=== PATIENT | male | born 1935 | race Caucasian/White ===

== ENCOUNTER 2019-03-02 07:44 | Inpatient (IN) ==
[2019-03-02] MEDS ORDERED: Ondansetron 4 MG/2 ML VIAL IVP ONE (07:58)
[2019-03-02] MEDS ORDERED: Isovue-370 500 ML BOTTLE IVP ONE ×2 (08:17→08:23)
[2019-03-02] MEDS ORDERED: 0.9 % Sodium Chloride 500 ML IVC ONE (08:20)
[2019-03-02 08:35] LABS: Basophils % 0.1 %; Hematocrit 30.1 % (37.5-50.1); Hemoglobin 9.9 g/dL (12.9-16.9); Immature Granulocytes % 0.9 % (0-4); Lymphocytes # 0.6 K/mcL (0.6-4.6); Lymphocytes % 4.6 %; Mean Corpuscular HGB Conc 32.9 g/dL (31.6-35.5); Mean Corpuscular Hemoglobin 32.2 pg (28.0-33.3); Mean Platelet Volume 11.5 fL (9.4-12.4); Monocytes # 0.9 K/mcL (0.0-1.3); Monocytes % 7.5 %; Neutrophils # 10.4 K/mcL (1.6-8.9); Platelet Count 188 K/mcL (140-400); Red Blood Count 3.07 M/mcL (4.19-5.50); Red Cell Distribution Width 14.8 % (11.5-14.5); Segmented Neutrophils % 86.9 %; White Blood Count 11.9 K/mcL (4.3-11.1)
[2019-03-02 08:42] LABS: INR 1.3; Prothrombin Time 14.7 Seconds (9.4-12.1)
[2019-03-02 08:58] LABS: Albumin 4.3 g/dL (3.5-5.7); Albumin/Globulin Ratio 1.5 (1.1-2.2); Bilirubin,Total 0.9 mg/dL (0.3-1.0); Calcium 10.7 mg/dL (8.6-10.3); Globulin 2.8 g/dL (2.4-3.5); Potassium 3.7 mEq/L (3.5-5.1); Total Protein 7.1 g/dL (6.4-8.9)
[2019-03-02 09:51] LABS: Troponin I 0.04 ng/mL (< 0.04)
[2019-03-02 10:09] LABS: Thyroid Stimulating Hormone 2.216 mcIU/mL (0.340-5.600)
--- NOTE | 2019-03-02 10:12 | Emergency Department Note ---
Disposition Clinical Impression: Weakness, ANA (acute kidney injury) Anemia Qualifiers: Anemia type: unspecified type Qualified Code(s): D64.9 - Anemia, unspecified Laceration of head Qualifiers: Encounter type: initial encounter Location of open wound of head: scalp Foreign body presence: without foreign body Qualified Code(s): S01.01XA - Laceration without foreign body of scalp, initial encounter Disposition: Admitted As Inpatient Condition: Good Time of Disposition: 18:27 General Adult HPI - General Chief complaint: ED Fall Stated complaint: weakness Time Seen by Provider: 03/02/19 07:45 Source: patient, EMS Mode of arrival: ambulatory Limitations: no limitations Nursing Notes Reviewed: Yes Vital Signs Reviewed: Yes - History of Present Illness HPI Narrative: Patient is a 83-year-old male with a past medical history of atrial fibrillation, CVA, myelodysplastic syndrome with anemia, and colon cancer with colostomy presents to the ED for evaluation of weakness and falls. Patient states that over the past week he has had increase in frequency of the amount of falls he has had falls in the past but increase in frequency more recently. This morning around 3:00 AM he got up from bed felt very weak and fell onto his back. He denies LOC. States it took a more than usual to get up. He is contacted by his sibling she came over and called squad. Patient states that he is dispensed feeling generally weak and having nausea and vomiting. He also admits to urinary incontinence. States that he is had CAT scans with his oncologist for follow-up of his cancer and told he has a large prostate and may eventually need a catheterization. She denies any focal neurological deficits. States he has back pain and his sibling at bedside states that he typically has back pain. Pain Scale: 6 - Related Data Home Medications Medication Instructions Recorded Confirmed Rivaroxaban [Xarelto] 15 mg PO DAILY 10/05/18 03/07/19 Levothyroxine Sodium 88 mcg PO QAM 03/02/19 03/07/19 Previous Rx's Medication Instructions Recorded HYDROcodone/Acet 5/325 mg [Lampe 1 tab PO Q8HR PRN 5 Days #15 tablet 03/06/19 5-325 mg] DULoxetine [Cymbalta] 90 mg PO DAILY #90 capsule. 03/13/19 Gabapentin [Neurontin] 800 mg PO TID 30 Days #180 capsule 03/13/19 predniSONE [PredniSONE] 10 mg PO BIDWM #14 tablet 03/13/19 Allergies Allergy/AdvReac Type Severity Reaction Status Date / Time No Known Allergies Allergy Verified 12/19/18 12:04 All systems ED: reviewed and negative except as stated. Review of Systems: As Per HPI Cardiovascular: Denies: chest pain, palpitations, dyspnea on exertion Respiratory: Denies: cough, dyspnea, wheezes Gastrointestinal: Reports: nausea, vomiting. Denies: abdominal pain, diarrhea, constipation, hematemesis, melena, hematochezia Genitourinary: Denies: urgency, dysuria Musculoskeletal: Denies: back pain, neck pain Integumentary: Denies: rash Past Medical History - Past Medical History Medical history: Reports: cancer, renal disease, thyroid disease Surgical history: Reports: cholecystectomy, colectomy Psychiatric history: Reports: no psych history - Social History Smoking Status: Never smoker Smokeless Tobacco Status: No Alcohol use: Reports: none Drug use: Reports: none Physical Exam - General Limitations: no limitations General appearance: alert - Expanded Head Exam Head exam physicial: Present: laceration (occiput laceration that is 2.5cm and linear.), abrasion (superficial to the right posterior shoulder left abdomen. ). Absent: contusion, hematoma, raccoon eyes, Moran's sign, tenderness of temporal artery, CSF rhinorrhea, CSF otorrhea - Eye Eye exam: Present: normal appearance, PERRL, EOMI. Absent: scleral icterus, periorbital swelling, periorbital tenderness - ENT ENT exam: normal exam, normal oropharynx, mucous membranes moist - Neck Neck exam: Present: normal inspection, full ROM, trachea midline. Absent: tenderness - Chest Chest inspection: Present: normal inspection, symmetric chest wall rise. Absent: tenderness, rash - Respiratory Respiratory exam: Present: normal lung sounds bilaterally. Absent: respiratory distress, wheezes - Cardiovascular Cardiovascular exam: Present: normal rhythm, tachycardia, irregular rhythm, normal heart sounds - Abdominal Exam Abdominal exam: Present: soft, Non-Tender, distention (suprapubic region), normal bowel sounds, other (colostomy bag present). Absent: tenderness, guarding, rebound, rigidity - Male exam: Present: normal inspection, normal testicular lie - Extremities Exam Extremities exam: Present: full ROM, normal capillary refill. Absent: tenderness, pedal edema, calf tenderness - Expanded Upper Extremity Exam Forearm/Wrist exam: Present: other (5cm linear laceration to the dorsal aspect of the left hand. tendon exposed, but no tendon injury. ROM and sensation intact. ) - Expanded Lower Extremity Exam Upper leg exam: Present: abrasion (right posterior shoulder) - Neurological Exam Neurological exam: Present: alert, oriented X3 - Psychiatric Psychiatric exam: Present: normal affect, normal mood - Skin Skin exam: Present: warm, dry, normal color Course Course Narrative: Patient presented to the ED for evaluation of weakness causing falls with no reports of LOC. Patient did have some signs of injury from the fall with laceration to his scalp as well as laceration his left upper extremity and some superficial abrasions. The patient is also mentioning nausea and vomiting as well as urinary incontinence and was reported to have a history of enlarged prostate which she was told may give him problems in the future. On bedside FAST exam he is noted to have no free fluid however he did have a markedly distended bladder with at least 1.2 L of urine present and patient was unable to produce any urine when asked. Patient at workup for his fall with head scanning as well as spine scanning and scan of the chest abdomen and pelvis. He does not appear to have any new traumatic injuries primarily old subacute injuries as well as chronic changing of his spine. Again bladder distention was noted. Patient's lab work was remarkable for what appears to be a chronic anemia as well as an ANA. A Cortes catheter was placed and there was relief of 1.2 L of urine patient improvement of his symptoms. His initial heart rate was and out of A. fib and tachycardic in the 130s to 140s and is improved with fluid resuscitation to 105-110. 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 I suspect that he will improve with resuscitation. Regardless will be admitted for further evaluation and workup. I discussed this with the family and they agree. Vital Signs Temperature 99.1 F 03/02/19 07:47 Pulse Rate 125 03/02/19 07:47 Respiratory Rate 18 03/02/19 07:47 Blood Pressure 115/74 03/02/19 07:47 O2 Sat by Pulse Oximetry 95 03/02/19 07:47 Temperature 98.5 F 03/06/19 11:09 Pulse Rate 68 03/06/19 11:09 Respiratory Rate 15 03/06/19 11:09 Blood Pressure 127/88 03/06/19 11:09 O2 Sat by Pulse Oximetry 98 03/06/19 11:09 Oxygen Delivery Oxygen Delivery Room Air Procedures - Laceration Laceration 1 Site: scalp Side (If applicable): right Description: linear Depth: simple, single layer Local Anesthetic: lidocaine 1%, with epi Amount of Anesthesia Used (mL): 3 Pre-repair: wound explored, irrigated extensively, deep structures intact Skin layer closed with: nylon Size: 4-0 Number of sutures/ginger: 4 Technique: simple, interrupted Laceration 2 Site: upper extremity, hand Side (If applicable): left Size (cm): 5 Description: linear Depth: simple, single layer Local Anesthetic: lidocaine 1%, with epi Amount of Anesthesia Used (mL): 7 Pre-repair: wound explored, irrigated extensively, deep structures intact Skin layer closed with: nylon Size: 4-0 Number of sutures/ginger: 9 Technique: simple, interrupted Medical Decision Making - Medical Records Medical records reviewed: Yes I reviewed the patient's medical records. - Lab Data Lab results reviewed: Yes I reviewed the patient's lab results. Result diagrams: 03/06/19 05:37 03/06/19 05:37 Lab Results 03/02/19 03/02/19 03/02/19 Range/Units 08:08 08:08 08:08 WBC 11.9 H (4.3-11.1) K/mcL RBC 3.07 L (4.19-5.50) M/mcL Hgb 9.9 L (12.9-16.9) g/dL Hct 30.1 L (37.5-50.1) % MCV 98.0 (83.0-100.0) fL MCH 32.2 (28.0-33.3) pg MCHC 32.9 (31.6-35.5) g/dL RDW 14.8 H (11.5-14.5) % Plt Count 188 (140-400) K/mcL MPV 11.5 (9.4-12.4) fL Immature Gran % 0.9 (0-4) % Seg Neutrophils % 86.9 % Lymphocytes % 4.6 % Monocytes % 7.5 % Eosinophils % 0.0 % Basophils % 0.1 % Neutrophils # 10.4 H (1.6-8.9) K/mcL Lymphocytes # 0.6 (0.6-4.6) K/mcL Monocytes # 0.9 (0.0-1.3) K/mcL Eosinophils # 0.0 (0.0-0.6) K/mcL Basophils # 0.0 (0.0-0.2) K/mcL PT 14.7 H (9.4-12.1) Seconds INR 1.3 Sodium 137 (136-145) mEq/L Potassium 3.7 (3.5-5.1) mEq/L Chloride 96 L (98-107) mEq/L Carbon Dioxide 27 (23-29) mEq/L BUN 49 H (8-23) mg/dL Creatinine 1.84 H (0.70-1.30) mg/dL Est GFR ( Amer) 43 L (> 60) Est GFR (Non-Af Amer) 35 L (> 60) BUN/Creatinine Ratio 27 H (6-26) Glucose 138 H (70-105) mg/dL POC Glucose (70-99) mg/dL Calculated Osmolality 299 (280-300) Lactic Acid (0.5-2.2) mmol/L Calcium 10.7 H (8.6-10.3) mg/dL Iron (65-175) mcg/dL % Saturation (20-55) % Transferrin (203-362) mg/dL Total Bilirubin 0.9 (0.3-1.0) mg/dL AST 22 (13-39) Units/L ALT 13 (7-52) Units/L Alkaline Phosphatase 85 (34-104) Units/L Creatine Kinase 116 (30-223) Units/L Troponin I 0.04 H* (< 0.04) ng/mL Serum Total Protein 7.1 (6.4-8.9) g/dL Albumin 4.3 (3.5-5.7) g/dL Globulin 2.8 (2.4-3.5) g/dL Albumin/Globulin Ratio 1.5 (1.1-2.2) Procalcitonin (0.00-0.15) ng/mL TSH 2.216 (0.340-5.600) mcIU/mL Urine Color (Yellow) Urine Clarity (Clear) Urine pH (5.0-8.0) pH Units Ur Specific Snyder (1.010-1.025) Urine Protein (Neg-Trace) mg/dL Urine Glucose (UA) (Normal) mg/dL Urine Ketones (Negative) mg/dL Urine Blood (Negative) Urine Nitrite (Negative) Urine Bilirubin (Negative) Urine Urobilinogen (Normal) mg/dL Ur Leukocyte Esterase (Negative) Ur Culture Indicated? (NO) Blood Type Antibody Screen 03/02/19 03/02/19 03/02/19 Range/Units 08:08 08:17 08:17 WBC (4.3-11.1) K/mcL RBC (4.19-5.50) M/mcL Hgb (12.9-16.9) g/dL Hct (37.5-50.1) % MCV (83.0-100.0) fL MCH (28.0-33.3) pg MCHC (31.6-35.5) g/dL RDW (11.5-14.5) % Plt Count (140-400) K/mcL MPV (9.4-12.4) fL Immature Gran % (0-4) % Seg Neutrophils % % Lymphocytes % % Monocytes % % Eosinophils % % Basophils % % Neutrophils # (1.6-8.9) K/mcL Lymphocytes # (0.6-4.6) K/mcL Monocytes # (0.0-1.3) K/mcL Eosinophils # (0.0-0.6) K/mcL Basophils # (0.0-0.2) K/mcL PT (9.4-12.1) Seconds INR Sodium (136-145) mEq/L Potassium (3.5-5.1) mEq/L Chloride (98-107) mEq/L Carbon Dioxide (23-29) mEq/L BUN (8-23) mg/dL Creatinine (0.70-1.30) mg/dL Est GFR ( Amer) (> 60) Est GFR (Non-Af Amer) (> 60) BUN/Creatinine Ratio (6-26) Glucose (70-105) mg/dL POC Glucose (70-99) mg/dL Calculated Osmolality (280-300) Lactic Acid 1.7 (0.5-2.2) mmol/L Calcium (8.6-10.3) mg/dL Iron (65-175) mcg/dL % Saturation (20-55) % Transferrin (203-362) mg/dL Total Bilirubin (0.3-1.0) mg/dL AST (13-39) Units/L ALT (7-52) Units/L Alkaline Phosphatase (34-104) Units/L Creatine Kinase (30-223) Units/L Troponin I (< 0.04) ng/mL Serum Total Protein (6.4-8.9) g/dL Albumin (3.5-5.7) g/dL Globulin (2.4-3.5) g/dL Albumin/Globulin Ratio (1.1-2.2) Procalcitonin 0.26 H (0.00-0.15) ng/mL TSH (0.340-5.600) mcIU/mL Urine Color (Yellow) Urine Clarity (Clear) Urine pH (5.0-8.0) pH Units Ur Specific Snyder (1.010-1.025) Urine Protein (Neg-Trace) mg/dL Urine Glucose (UA) (Normal) mg/dL Urine Ketones (Negative) mg/dL Urine Blood (Negative) Urine Nitrite (Negative) Urine Bilirubin (Negative) Urine Urobilinogen (Normal) mg/dL Ur Leukocyte Esterase (Negative) Ur Culture Indicated? (NO) Blood Type AB NEGATIVE Antibody Screen NEGATIVE 03/02/19 03/02/19 03/02/19 Range/Units 08:26 10:00 16:42 WBC (4.3-11.1) K/mcL RBC (4.19-5.50) M/mcL Hgb (12.9-16.9) g/dL Hct (37.5-50.1) % MCV (83.0-100.0) fL MCH (28.0-33.3) pg MCHC (31.6-35.5) g/dL RDW (11.5-14.5) % Plt Count (140-400) K/mcL MPV (9.4-12.4) fL Immature Gran % (0-4) % Seg Neutrophils % % Lymphocytes % % Monocytes % % Eosinophils % % Basophils % % Neutrophils # (1.6-8.9) K/mcL Lymphocytes # (0.6-4.6) K/mcL Monocytes # (0.0-1.3) K/mcL Eosinophils # (0.0-0.6) K/mcL Basophils # (0.0-0.2) K/mcL PT (9.4-12.1) Seconds INR Sodium (136-145) mEq/L Potassium (3.5-5.1) mEq/L Chloride (98-107) mEq/L Carbon Dioxide (23-29) mEq/L BUN (8-23) mg/dL Creatinine (0.70-1.30) mg/dL Est GFR ( Amer) (> 60) Est GFR (Non-Af Amer) (> 60) BUN/Creatinine Ratio (6-26) Glucose (70-105) mg/dL POC Glucose 129 H (70-99) mg/dL Calculated Osmolality (280-300) Lactic Acid (0.5-2.2) mmol/L Calcium (8.6-10.3) mg/dL Iron (65-175) mcg/dL % Saturation (20-55) % Transferrin (203-362) mg/dL Total Bilirubin (0.3-1.0) mg/dL AST (13-39) Units/L ALT (7-52) Units/L Alkaline Phosphatase (34-104) Units/L Creatine Kinase (30-223) Units/L Troponin I 0.05 H* (< 0.04) ng/mL Serum Total Protein (6.4-8.9) g/dL Albumin (3.5-5.7) g/dL Globulin (2.4-3.5) g/dL Albumin/Globulin Ratio (1.1-2.2) Procalcitonin (0.00-0.15) ng/mL TSH (0.340-5.600) mcIU/mL Urine Color Yellow (Yellow) Urine Clarity Clear (Clear) Urine pH 6.0 (5.0-8.0) pH Units Ur Specific Snyder 1.016 (1.010-1.025) Urine Protein Negative (Neg-Trace) mg/dL Urine Glucose (UA) Normal (Normal) mg/dL Urine Ketones Negative (Negative) mg/dL Urine Blood Negative (Negative) Urine Nitrite Negative (Negative) Urine Bilirubin Negative (Negative) Urine Urobilinogen Normal (Normal) mg/dL Ur Leukocyte Esterase Negative (Negative) Ur Culture Indicated? NO (NO) Blood Type Antibody Screen 03/03/19 03/03/19 Range/Units 02:12 02:12 WBC 8.1 (4.3-11.1) K/mcL RBC 2.57 L (4.19-5.50) M/mcL Hgb 8.4 L D (12.9-16.9) g/dL Hct 25.5 L (37.5-50.1) % MCV 99.2 (83.0-100.0) fL MCH 32.7 (28.0-33.3) pg MCHC 32.9 (31.6-35.5) g/dL RDW 14.8 H (11.5-14.5) % Plt Count 153 (140-400) K/mcL MPV 11.5 (9.4-12.4) fL Immature Gran % 0.7 (0-4) % Seg Neutrophils % 74.2 % Lymphocytes % 13.3 % Monocytes % 11.6 % Eosinophils % 0.1 % Basophils % 0.1 % Neutrophils # 6.0 (1.6-8.9) K/mcL Lymphocytes # 1.1 (0.6-4.6) K/mcL Monocytes # 0.9 (0.0-1.3) K/mcL Eosinophils # 0.0 (0.0-0.6) K/mcL Basophils # 0.0 (0.0-0.2) K/mcL PT (9.4-12.1) Seconds INR Sodium 137 (136-145) mEq/L Potassium 3.3 L (3.5-5.1) mEq/L Chloride 104 (98-107) mEq/L Carbon Dioxide 26 (23-29) mEq/L BUN 36 H (8-23) mg/dL Creatinine 1.38 H (0.70-1.30) mg/dL Est GFR ( Amer) 59 L (> 60) Est GFR (Non-Af Amer) 49 L (> 60) BUN/Creatinine Ratio 26 (6-26) Glucose 104 (70-105) mg/dL POC Glucose (70-99) mg/dL Calculated Osmolality 293 (280-300) Lactic Acid (0.5-2.2) mmol/L Calcium 9.2 (8.6-10.3) mg/dL Iron 36 L (65-175) mcg/dL % Saturation 16 L (20-55) % Transferrin 158 L (203-362) mg/dL Total Bilirubin (0.3-1.0) mg/dL AST (13-39) Units/L ALT (7-52) Units/L Alkaline Phosphatase (34-104) Units/L Creatine Kinase (30-223) Units/L Troponin I (< 0.04) ng/mL Serum Total Protein (6.4-8.9) g/dL Albumin (3.5-5.7) g/dL Globulin (2.4-3.5) g/dL Albumin/Globulin Ratio (1.1-2.2) Procalcitonin (0.00-0.15) ng/mL TSH (0.340-5.600) mcIU/mL Urine Color (Yellow) Urine Clarity (Clear) Urine pH (5.0-8.0) pH Units Ur Specific Snyder (1.010-1.025) Urine Protein (Neg-Trace) mg/dL Urine Glucose (UA) (Normal) mg/dL Urine Ketones (Negative) mg/dL Urine Blood (Negative) Urine Nitrite (Negative) Urine Bilirubin (Negative) Urine Urobilinogen (Normal) mg/dL Ur Leukocyte Esterase (Negative) Ur Culture Indicated? (NO) Blood Type Antibody Screen - Radiology Data Radiology results reviewed: Yes I reviewed the patient's radiology results. Chest X-Ray 03/02/19 07:58 IMPRESSION: No acute cardiopulmonary process. No traumatic injury identified. D/ / Hamzah Arizmendi MD / Hamzah Arizmendi MD Interpreting Provider: Hamzah Arizmendi MD Pelvis X-Ray 03/02/19 08:00 IMPRESSION: No acute osseous abnormality. D/ / Jonathan Bianchi MD / Jonathan Bianchi MD Interpreting Provider: Jonathan Bianchi MD Wrist X-Ray 03/02/19 08:16 IMPRESSION: No acute osseous abnormality. D/ / 03/02/2019 08:53:58 Jonathan Bianchi MD / curt Interpreting Provider: Jonathan Bianchi MD - EKG Data EKG #1 EKG attestation: Yes I reviewed and interpreted this EKG. EKG results narrative: EKG done at 8:37 shows atrial fibrillation rate 1 20 bpm. Normal axis. Intervals within normal limits. No signs of ST elevation, ST depression or Q waves present. Attestation Statement - Attestation Attestation: I, Serjio Hernandez, examined this patient and my medical decision-making was reviewed with the CASE MANAGEMENT DIRECTOR/PA/Advanced Practice Nurse/Resident Physician. I agree with the documented findings, disposition and treatment plan as described except to the extent set forth below. 83-year-old male presents emergency Department with concerns of increased weakness. Family reports the patient has been weak and fatigued and falling multiple times over the past few weeks. Family brought him today because he fell at home prior to arrival. He reports becoming increasingly weak and near syncopal with standing. He has intermittent incontinence at home. He has a history of recent nausea and vomiting and has had decreased by mouth intake over the past few days. Patient was initially very tachycardic to the 140s with what looked to be atrial fibrillation. Patient takes Xarelto for treatment of his atrial fibrillation and has a history of previous CVA in the past. His heart rate did intermittently become a sinus tachycardia.I reviewed the EKG with the resident and agree with the interpretation. Patient had a very large postvoid residual and he had large amount of return of urine when Cortes was placed. CTA did not show evidence of acute surgical pathology however he does have multiple compression fractures and age-indeterminate fractures of the ribs. Tachycardia improved with IV fluids and draining of the bladder, vital signs stable prior to admission. Patient will be admitted to the hospitalist for further care and evaluation. I was present for laceration repair by resident.
[2019-03-02 10:34] LABS: Bilirubin,Urine Negative (Negative); Blood,Urine Negative (Negative); Clarity,Urine Clear (Clear); Color,Urine Yellow (Yellow); Glucose,Urine (UA) Normal (Normal); Ketones,Urine Negative (Negative); Leukocyte Esterase,Urine Negative (Negative); Nitrite,Urine Negative (Negative); Protein,Urine Negative (Neg-Trace); Specific Gravity,Urine 1.016 (1.010-1.025); Urobilinogen,Urine Normal (Normal)
[2019-03-02] MEDS ORDERED: Morphine Sulfate 2 MG/ML SYRINGE IVP ONE ×2 (10:36→11:32)
[2019-03-02] MEDS ORDERED: 0.9 % Sodium Chloride 1,000 ML IVC ONE (10:57)
[2019-03-02] MEDS ORDERED: Ondansetron 4 MG/2 ML VIAL IVP PRN (11:21)
[2019-03-02] MEDS ORDERED: Naloxone 0.4 MG/ML INJ IVP PRN (11:21)
[2019-03-02] MEDS ORDERED: 0.9 % Sodium Chloride 1,000 ML IVC SCH (11:30)
--- NOTE | 2019-03-02 11:38 | Internal Med History&Physical ---
Date of Encounter: 03/02/19 Time of Encounter: 11:49 Internal Medicine - H&P: HPI History of present illness: Mr. Ching is a 83 year old male with history of atrial fibrillation on Xarelto, colon cancer s/p resection and colostomy, MDS, CVA 6 months ago presents to ED for progressive weakness and frequent falls. Patient is main history but son at bedside helps provide some history as well. Since having CVA six months ago, son reports he has been on a steady decline with less activity and more generalized weakness. He has been having multiple falls as well, more frequent in the past week. This morning he was not able to get up at all. Did not have any LOC. He has had chronic urinary incontinence requiring finesteride and Flomax but still having voiding issues. He was recently treated by his primary care physician in [place] for UTI with Cipro, but was unable to tolerate PO med ication. N/V for about 3 days now. No fevers/chills, SOB. He is having some back and chest pain where he fell. No change in vision or headache. In the ED, a CT head was negative. He was tachycardic and improved with IV fluid hydration. Hemoglobin was 9.9 at baseline. Troponin borderline elevated at 0.04. WBC elevated at 11.9, afebrile. Urinalysis was completely unremarkable. He had a Cortes catheter placed and 1.2 L of urine was obtained. Orthostatic vital signs were positive. Garcia scan CT showed possible aspiration pneumonia, urinary retention, remainder of findings were chronic. See report. He is currently at baseline feeling week. Past Med Surg Social Fam HX - Past Medical History Medical history: cancer, renal disease, thyroid disease Additional medical history: colon cancer Psychiatric history: no psych history - Past Surgical History Surgical History: cholecystectomy, colectomy Additional surgical history: colostomy - Social History Smoking Status: Never smoker Smokeless Tobacco Status: No Alcohol use: none Drug use: none Internal Medicine - H&P: Meds Levothyroxine [Synthroid] 88 mcg PO 0630 05/01/15 [History] Tamsulosin [Flomax] 0.4 mg PO DAILY 05/01/15 [History] Rivaroxaban [Xarelto] 15 mg PO DAILY 10/05/18 [History] Furosemide [Lasix] 40 mg PO DAILY 11/21/18 [History] Gabapentin [Neurontin] 600 mg PO DAILY 01/02/19 [History] Ciprofloxacin [Cipro] 500 mg PO BID 03/02/19 [History] DULoxetine [Cymbalta] 60 mg PO DAILY 03/02/19 [History] Finasteride [Proscar] 5 mg PO DAILY 03/02/19 [History] Hydrocodone/Acetaminophen [Hydrocodon-Acetaminophen 5-325] 1 each PO PRN PRN 03/02/19 [History] Allergy/AdvReac Type Severity Reaction Status Date / Time No Known Allergies Allergy Verified 12/19/18 12:04 All Systems PM: A 10-system review of systems was performed and is negative for pertinent findings except as documented above in the HPI. - Constitutional Constitutional: fatigue, falls, weakness, no excessive sweating, no fever(s), no lethargy, no weight gain, no weight loss - EENT Eyes: no blurry vision Ears: no ear discharge, no ear pain, no tinnitus Nose, mouth and throat: no dysphagia, no nasal discharge, no neck pain, no odynophagia, no sore throat - Cardiovascular Additional comments: chest wall pain - Respiratory Respiratory: no cough, no dyspnea - Gastrointestinal Gastrointestinal: nausea, vomiting, no change in bowel habits, no change in stool character - Genitourinary Genitourinary ROS male: difficulty urinating, urinary incontinence, no dysuria, no flank pain, no hematuria, no scrotal swelling, no testicular mass - Musculoskeletal Musculoskeletal ROS IM: muscle weakness, no myalgias, no stiffness - Neurological Neurological ROS: abnormal gait, frequent falls, no headache(s), no lack of coordination - Constitutional Vitals: Temp Pulse Resp BP Pulse Ox 99.1 F 100 18 114/83 96 03/02/19 07:47 03/02/19 11:07 03/02/19 11:07 03/02/19 11:07 03/02/19 11:07 General appearance: Present: A&O X 3, no acute distress Exam: . - Head Additional comments: Laceration on top of scalp with intact sutures without any active bleeding or drainage. - Eye Eye exam: Present: PERRL, conjuntiva pink, sclera anicteric Pupils: Present: PERRL - Neck Neck exam general surgery: Present: supple, trachea midline. Absent: lymphad enopathy - Respiratory Respiratory exam: Present: CTAB. Absent: accessory muscle use, rales, rhonchi, wheezes - Cardiovascular Cardiovascular exam: Present: RRR, +S1, +S2. Absent: diastolic murmur, gallop, rubs, systolic murmur - GI/Abdominal GI/Abdominal exam: Present: normal bowel sounds, soft, no peritoneal signs. Absent: distended, tenderness Additional comments: colostomy bag - Additional comments: Cortes catheter present - Neurological Exam Neurological exam: Present: oriented X3, facial droop (left side chronic). Absent: motor sensory deficit, strengths equal and symetr throughout (weakness of lower extremities noted bilaterally; reports at baseline), pronater drift, speech deficit - Skin Skin exam: Present: dry, warm Additional comments: left scalp laceration with 5 sutures, laceration on left hand on dorsal aspect. Internal Med - H&P Results - Labs CBC & Chem 7: 03/02/19 08:08 03/02/19 08:08 Labs: Short CBC 03/02/19 Range/Units 08:08 WBC 11.9 H (4.3-11.1) K/mcL Hgb 9.9 L (12.9-16.9) g/dL Hct 30.1 L (37.5-50.1) % Plt Count 188 (140-400) K/mcL Neutrophils # 10.4 H (1.6-8.9) K/mcL BMP 03/02/19 08:08 Sodium 137 Potassium 3.7 Chloride 96 L Carbon Dioxide 27 BUN 49 H Creatinine 1.84 H Glucose 138 H Calcium 10.7 H Cardiac Enzymes 03/02/19 Range/Units 08:08 Troponin I 0.04 H* (< 0.04) ng/mL Liver Function 03/02/19 Range/Units 08:08 Total Bilirubin 0.9 (0.3-1.0) mg/dL AST 22 (13-39) Units/L ALT 13 (7-52) Units/L Alkaline Phosphatase 85 (34-104) Units/L Albumin 4.3 (3.5-5.7) g/dL Urine 03/02/19 Range/Units 10:00 Urine Color Yellow (Yellow) Urine Clarity Clear (Clear) Urine pH 6.0 (5.0-8.0) pH Units Ur Specific [place] 1.016 (1.010-1.025) Urine Protein Negative (Neg-Trace) mg/dL Urine Glucose (UA) Normal (Normal) mg/dL - Impressions ITS Impressions Chest X-Ray 03/02/19 07:58 IMPRESSION: No acute cardiopulmonary process. No traumatic injury identified. D/ / Hamzah Arizmendi MD / Hamzah Arizmendi MD Interpreting Provider: Hamzah Arizmendi MD Cervical Spine CT 03/02/19 08:00 IMPRESSION: 1. No acute fracture or subluxation of the cervical spine. 2. Stable chronic wedging of the T1, T2, and T3 vertebral bodies. 3. Stable multilevel cervical degenerative disc disease, as detailed above. D/ / 03/02/2019 11:11:49 Howard Johnson MD / Renetta Augustin Interpreting Provider: Howard Johnson MD Head CT 03/02/19 08:00 IMPRESSION: Stable appearance of the brain with no acute intracranial abnormality. There is age-appropriate cerebral atrophy with evidence of chronic periventricular small vessel ischemic disease. Lacunar type infarct in the right basal ganglia is unchanged. D/ / Hamzah Arizmendi MD / Hamzah Arizmendi MD Interpreting Provider: Hamzah Arizmendi MD Pelvis X-Ray 03/02/19 08:00 IMPRESSION: No acute osseous abnormality. D/ / Jonathan Bianchi MD / Jonathan Bianchi MD Interpreting Provider: Jonathan Bianchi MD Wrist X-Ray 03/02/19 08:16 IMPRESSION: No acute osseous abnormality. D/ / 03/02/2019 08:53:58 Jonathan Bianchi MD / [facility] Interpreting Provider: Jonathan Bianchi MD Chest/Abdomen/Pelvis CTA 03/02/19 08:17 size from the prior study. The prostate gland creates an impression on the undersurface of the urinary bladder. Peritoneum/Retroperitoneum: Atheromatous calcifications of the abdominal aorta and its branches. No evidence of intraperitoneal free air. Trace free fluid along the right pericolic gutter, slightly increased in volume from the prior study. No lymphadenopathy. Bones/Soft Tissues: Please refer to the CT thoracic and lumbar spine performed at the same time for dedicated spine findings. Several compression fractures are again seen in the thoracic and lumbar spine including T3, T11, T12, and L2. IMPRESSION: No acute traumatic abnormality in the chest, abdomen, or pelvis. Multiple compression deformities in the thoracic and lumbar spine, better delineated on the dedicated CT thoracic and lumbar spine, not significantly changed from the CT 2 days ago. Multiple subacute to chronic left anterior and posterior rib fractures. The urinary bladder has increased in size and is significantly distended. Additionally, there is mild dilation of the bilateral renal collecting systems and ureters, concerning for bladder outlet obstruction. Decreased distention of the small bowel as compared to the prior study which could represent an improving obstruction or ileus. New patchy opacities in the left lower lobe. There is fluid throughout the esophagus with secretions in the trachea. This could represent aspiration and/or infection. Follow-up radiographs are recommended. Multiple hypodensities in the liver, some appear to represent cysts while others are too small to characterize/indeterminate. D/ /02/2019 11:22:34 Donald Sue / curt Interpreting Provider: Donald Sue Lumbar Spine CT 03/02/19 08:17 IMPRESSION: 1. Unchanged appearance of compression fractures involving T3, T11 and T12 compared to the chest CT performed 2 days ago. 2. No new compression deformities identified in the thoracic spine. There is mild multilevel degenerative disc disease as described above. If there are neurologic symptoms, MRI could be performed for further evaluation. 3. Redemonstration of a mild L2 compression fracture, unchanged from the abdominal CT images 2 days ago. 4. No new compression deformities in the lumbar spine. There is mild multilevel degenerative disc disease in the lumbar spine as described above. If there are neurologic symptoms, MRI could be performed for further evaluation. 5. Diffuse osteopenia. 6. Left lower lobe consolidation is concerning for pneumonia. Follow-up chest radiographs are recommended. 7. Marked distention of the urinary bladder. Correlation with urinary output is recommended as bladder outlet obstruction cannot be excluded. D/ / Hamzah Arizmendi MD / Hamzah Arizmendi MD Interpreting Provider: Hamzah Arizmendi MD Thoracic Spine CT 03/02/19 08:17 IMPRESSION: 1. Unchanged appearance of compression fractures involving T3, T11 and T12 compared to the chest CT performed 2 days ago. 2. No new compression deformities identified in the thoracic spine. There is mild multilevel degenerative disc disease as described above. If there are neurologic symptoms, MRI could be performed for further evaluation. 3. Redemonstration of a mild L2 compression fracture, unchanged from the abdominal CT images 2 days ago. 4. No new compression deformities in the lumbar spine. There is mild multilevel degenerative disc disease in the lumbar spine as described above. If there are neurologic symptoms, MRI could be performed for further evaluation. 5. Diffuse osteopenia. 6. Left lower lobe consolidation is concerning for pneumonia. Follow-up chest radiographs are recommended. 7. Marked distention of the urinary bladder. Correlation with urinary output is recommended as bladder outlet obstruction cannot be excluded. D/ / Hamzah Arizmendi MD / Hamzah Arizmendi MD Interpreting Provider: Hamzah Arizmendi MD - Assessment and Plan (1) Generalized weakness Current Visit: Yes Status: Acute Assessment and plan: Likely multifactorial. Primarily from deconditioning from CVA 6 months ago and recent dehydration and a possible aspiration pneumonia. CT head negative. CT scans show subacute fractures. TSH, CBC, LFTs unremarkable. - Hold anticoagulation: Patient has atrial fibrillation with history of CVA, but given his frequent falls, he is at extremely high risk of life threatening bleeding and will hold anticoagulation. - PT/OT - Continue gentle IV fluid hydration, received 1.5 L so far with improvement. - Treatment of aspiration pneumonia with speech therapy consultation. (2) Debility Current Visit: Yes Status: Acute Assessment and plan: As above (3) History of CVA (cerebrovascular accident) Current Visit: Yes Status: Acute Assessment and plan: Resume home medications but hold anticoagulation (4) Acute on chronic kidney failure Current Visit: Yes Status: Acute Assessment and plan: likely dehyrdation, continue IV fluid hydration Qualifiers: Acute renal failure type: unspecified Chronic kidney disease stage: stage 3 (moderate) Qualified Code(s): N17.9 - Acute kidney failure, unspecified; N18.3 - Chronic kidney disease, stage 3 (moderate) (5) Urinary retention due to benign prostatic hyperplasia Current Visit: Yes Status: Acute Assessment and plan: Cortes placed and 1.2 L urine output. Keep Cortes, consult Urology. (6) Aspiration pneumonia Current Visit: Yes Status: Acute Assessment and plan: Suspect based on clinical presentation, post CVA weakness, several days of nausea possibly causing aspiration. Consult Speech Therapy, swallow eval Qualifiers: Aspiration pneumonia type: unspecified Laterality: unspecified laterality Lung location: lower lobe of lung Qualified Code(s): J69.0 - Pneumonitis due to inhalation of food and vomit (7) Dehydration Current Visit: Yes Status: Acute (8) Elevated troponin Current Visit: Yes Status: Acute Assessment and plan: Suspect this is from contusion as he is having multiple falls on back and chest. Recheck in 6 hrs from last draw. (9) Frequent falls Current Visit: Yes Status: Acute (10) Atrial fibrillation Current Visit: Yes Status: Acute Assessment and plan: Currently no home medications list rate control medications. He is tachycardic from dehydration. He is on Xarelto at home but is high risk for intracranial bleeding based on his falling on his head and multiple other areas. - Place IV Lopressor prn tachycardia - Hold Xarelto for now. Qualifiers: Atrial fibrillation type: chronic Qualified Code(s): I48.2 - Chronic atrial fibrillation (11) MDS (myelodysplastic syndrome) Current Visit: No Status: Acute (12) MGUS (monoclonal gammopathy of unknown significance) Current Visit: No Status: Acute (13) Colon cancer Current Visit: No Status: Chronic Assessment and plan: Stable. 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
[2019-03-02] MEDS: Ampicillin/Sulbactam 1,500 MG in 0.9 % Sodium Chloride Mini Bag 100 ML IVPB SCH (12:57)
--- NOTE | 2019-03-02 13:52 | Electrocardiograph Report ---
[place] [id number] Test Date: 2019-03-02 Pat Name: Ravi Ching Department: [id number] Room: 3B Gender: M [employer]: : 1935 Requested By: Serjio Hernandez Order Number: [id number] Reading MD: Jaime Law Measurements Intervals [place] Rate: 132 P: MT: QRS: 47 QRSD: 99 T: 72 QT: 313 QTc: 464 Interpretive Statements Atrial fibrillation Electronically Signed On 03-02-2019 13:51:21 EDT by Jaime Law
--- NOTE | 2019-03-02 15:48 | Urology - Consult Note ---
<Kirstin Fischer N - Last Filed: 03/02/19 15:45> Date of Encounter: 03/02/19 Time of Encounter: 15:30 - Assessment and Plan (1) Urinary retention due to benign prostatic hyperplasia Current Visit: Yes Status: Acute Assessment and plan: Patient is an 83-year-old male who presents with urinary retention secondary to BPH. Patient is currently on both Flomax and finasteride daily. We discussed CT findings of overdistended bladder and evidence of ongoing, long-term outlet obstruction. PSA from April 2018 is reassuring. We will plan to continue Flomax and finasteride daily as well as to continue with the indwelling Hernández catheter throughout patient's admission. We will likely plan to proceed with a cystoscopy and trial of void within 1 week of discharge. Unfortunately, with patient's overall status, the options for definitive management of BPH and retention are not ideal for Mr. Ching as they include surgery, intermittent catheterization or chronic indwelling hernández catheter. I am hesitant to increase Flomax to twice daily secondary to patient's history of weakness and falls. Dr. Santoyo will be in to reevaluate patient. Urology CN:HPI Consult date: 03/02/19 Reason for consult Urology: Other (urinary retention) Requesting physician: Moncho Celeste History of present illness: Patient is an 83-year-old male who presents with urinary retention. Patient presented to the emergency department for progressive weakness and recent history of multiple falls. A Hernández catheter was placed in the emergency department with immediate return of over 1.2 L of clear yellow urine. Patient has a significant past medical history for atrial fibrillation, CVA, BPH, melanoma and colon cancer. Patient reports a long-standing history of urinary hesitancy, and he is taking both Flomax and finasteride daily. Patient does not believe he has missed any of his medication. Patient denies any known family history of prostate cancer, and PSA from 04/26/2019 was 2.59. Patient admits to ongoing urinary urgency, frequency, nocturia, hesitancy, weak stream and postvoid dribbling. Patient denies any dysuria, gross hematuria or incontinence. I reviewed [facility] records and could not find any previous establishment with [facility]. Past Med Surg Social Fam HX - Past Medical History Medical history: cancer, renal disease, thyroid disease Additional medical history: colon cancer Psychiatric history: no psych history - Past Surgical History Surgical History: cholecystectomy, colectomy Additional surgical history: colostomy - Social History Smoking Status: Never smoker Smokeless Tobacco Status: No Alcohol use: none Drug use: none - Additional Family History Additional family history: No known documented family history of prostate or other malignancy Medications and Allergies Levothyroxine [Synthroid] 88 mcg PO 0630 05/01/15 [History] Tamsulosin [Flomax] 0.4 mg PO DAILY 05/01/15 [History] Rivaroxaban [Xarelto] 15 mg PO DAILY 10/05/18 [History] Furosemide [Lasix] 40 mg PO DAILY 11/21/18 [History] Gabapentin [Neurontin] 600 mg PO DAILY 01/02/19 [History] Ciprofloxacin [Cipro] 500 mg PO BID 03/02/19 [History] DULoxetine [Cymbalta] 60 mg PO DAILY 03/02/19 [History] Finasteride [Proscar] 5 mg PO DAILY 03/02/19 [History] Hydrocodone/Acetaminophen [Hydrocodon-Acetaminophen 5-325] 1 each PO PRN PRN 03/02/19 [History] Allergy/AdvReac Type Severity Reaction Status Date / Time No Known Allergies Allergy Verified 12/19/18 12:04 Review of Systems - Constitutional no chills, no fatigue, no fever(s) - EENT Nose, mouth and throat: no dizziness, no headache(s) - Cardiovascular no chest pain, no diaphoresis, no dyspnea - Respiratory no cough, no dyspnea - Gastrointestinal no abdominal pain, no nausea, no vomiting - Genitourinary change in urinary stream, difficulty urinating, nocturia, post void dribbling, urinary frequency, urinary hesitancy, urinary urgency, no dysuria, no flank pain, no genital pain, no hematuria, no scrotal swelling, no testicular pain, no urinary incontinence - Musculoskeletal no back pain, no muscle weakness - Integumentary no erythema, no rash - Neurological weakness, no confusion, no syncope - Psychiatric no anxiety, no confusion - Hematologic/Lymphatic no easy bleeding, no easy bruising - Allergic/Immunologic no throat swelling, no wheezing Exam Initial Vital Signs Temp Pulse Resp BP Pulse Ox 99.1 F 125 18 115/74 95 03/02/19 07:47 03/02/19 07:47 03/02/19 07:47 03/02/19 07:47 03/02/19 07:47 - General physical appearance Present: no distress, no pain - Eyes Present: PERRL, normal ocular movement - ENT Present: no congestion, decreased hearing - Neck Present: no masses, trachea midline, no lymphadenopathy - Respiratory Present: normal respiratory effort - Cardiovascular Cardiovascular exam IM: RRR - Abdomen Abdomen: Present: soft, non tender. Absent: distended (Ostomy site benign) - Genitourinary other (Hernández catheter is indwelling and draining transparent, clear yellow urine into bedside bag) - Integumentary Present: no rash, no abnormal pigmentation - Neurologic Present: normal coordination - Musculoskeletal Present: other (Normal posture) Urology Results - Labs 03/02/19 08:08 03/02/19 08:08 Abnormal lab results WBC 11.9 K/mcL (4.3-11.1) H 03/02/19 08:08 RBC 3.07 M/mcL (4.19-5.50) L 03/02/19 08:08 Hgb 9.9 g/dL (12.9-16.9) L 03/02/19 08:08 Hct 30.1 % (37.5-50.1) L 03/02/19 08:08 RDW 14.8 % (11.5-14.5) H 03/02/19 08:08 Neutrophils # 10.4 K/mcL (1.6-8.9) H 03/02/19 08:08 PT 14.7 Seconds (9.4-12.1) H 03/02/19 08:08 Chloride 96 mEq/L (98-107) L 03/02/19 08:08 BUN 49 mg/dL (8-23) H 03/02/19 08:08 Creatinine 1.84 mg/dL (0.70-1.30) H 03/02/19 08:08 Est GFR ( Amer) 43 (> 60) L 03/02/19 08:08 Est GFR (Non-Af Amer) 35 (> 60) L 03/02/19 08:08 BUN/Creatinine Ratio 27 (6-26) H 03/02/19 08:08 Glucose 138 mg/dL (70-105) H 03/02/19 08:08 POC Glucose 129 mg/dL (70-99) H 03/02/19 08:26 Calcium 10.7 mg/dL (8.6-10.3) H 03/02/19 08:08 Troponin I 0.04 ng/mL (< 0.04) H* 03/02/19 08:08 Procalcitonin 0.26 ng/mL (0.00-0.15) H 03/02/19 08:08 Diabetes panel 03/02/19 Range/Units 08:08 Sodium 137 (136-145) mEq/L Potassium 3.7 (3.5-5.1) mEq/L Chloride 96 L (98-107) mEq/L Carbon Dioxide 27 (23-29) mEq/L BUN 49 H (8-23) mg/dL Creatinine 1.84 H (0.70-1.30) mg/dL Glucose 138 H (70-105) mg/dL Calcium 10.7 H (8.6-10.3) mg/dL AST 22 (13-39) Units/L ALT 13 (7-52) Units/L Alkaline Phosphatase 85 (34-104) Units/L Albumin 4.3 (3.5-5.7) g/dL Thyroid panel 03/02/19 Range/Units 08:08 TSH 2.216 (0.340-5.600) mcIU/mL Calcium panel 03/02/19 Range/Units 08:08 Calcium 10.7 H (8.6-10.3) mg/dL Albumin 4.3 (3.5-5.7) g/dL Pituitary panel 03/02/19 Range/Units 08:08 Sodium 137 (136-145) mEq/L Potassium 3.7 (3.5-5.1) mEq/L Chloride 96 L (98-107) mEq/L Carbon Dioxide 27 (23-29) mEq/L BUN 49 H (8-23) mg/dL Creatinine 1.84 H (0.70-1.30) mg/dL Glucose 138 H (70-105) mg/dL Calcium 10.7 H (8.6-10.3) mg/dL TSH 2.216 (0.340-5.600) mcIU/mL Adrenal panel 03/02/19 Range/Units 08:08 Sodium 137 (136-145) mEq/L Potassium 3.7 (3.5-5.1) mEq/L Chloride 96 L (98-107) mEq/L Carbon Dioxide 27 (23-29) mEq/L BUN 49 H (8-23) mg/dL Creatinine 1.84 H (0.70-1.30) mg/dL Glucose 138 H (70-105) mg/dL Calcium 10.7 H (8.6-10.3) mg/dL Total Bilirubin 0.9 (0.3-1.0) mg/dL AST 22 (13-39) Units/L ALT 13 (7-52) Units/L Alkaline Phosphatase 85 (34-104) Units/L Albumin 4.3 (3.5-5.7) g/dL All other labs normal. - Imaging CT scan - abdomen: report reviewed, image reviewed CT scan - pelvis: report reviewed, image reviewed Consult Discharge Plan - Plan Referrals: Terry Gupta DO [Primary Care Provider] - <Daniel Santoyo - Last Filed: 03/02/19 22:39> Date of Encounter: 03/02/19 - Assessment and Plan (1) Urinary retention Current Visit: Yes Status: Acute Assessment and plan: Patient seen and examined independently. History, review of systems and physical exam findings of PA verified. All pertinent imaging reviewed. I am in agreement with the assessment and plan as outlined by our Urologic Surgery Department Physician [employer] Car [employer], Amado. Discussed potential mechanisms of urinary retention with patient in detail. Discussed need for anatomic evaluation as patient is maxed out on BPH meds. Plan: Will arrange for outpatient office-based cystoscopy in the coming 1-2 weeks. Discharged home with indwelling Hernández. (2) BPH (benign prostatic hyperplasia) Current Visit: Yes Status: Acute Assessment and plan: Presumed mechanism of retention. However, the patient is on both a 5 alpha reductase inhibitor as well as an alpha-christina without relief of urinary retention. Plan: Will arrange for outpatient cystoscopy/uroflow/ENRIKE. Qualifiers: Lower urinary tract symptom presence: symptoms present Lower urinary tract symptom detail: weak urinary stream Qualified Code(s): N40.1 - Benign prostatic hyperplasia with lower urinary tract symptoms; R39.12 - Poor urinary stream Exam Initial Vital Signs Temp Pulse Resp BP Pulse Ox 99.1 F 125 18 115/74 95 03/02/19 07:47 03/02/19 07:47 03/02/19 07:47 03/02/19 07:47 03/02/19 07:47 Urology Results - Labs 03/02/19 08:08 03/02/19 08:08 Abnormal lab results WBC 11.9 K/mcL (4.3-11.1) H 03/02/19 08:08 RBC 3.07 M/mcL (4.19-5.50) L 03/02/19 08:08 Hgb 9.9 g/dL (12.9-16.9) L 03/02/19 08:08 Hct 30.1 % (37.5-50.1) L 03/02/19 08:08 RDW 14.8 % (11.5-14.5) H 03/02/19 08:08 Neutrophils # 10.4 K/mcL (1.6-8.9) H 03/02/19 08:08 PT 14.7 Seconds (9.4-12.1) H 03/02/19 08:08 Chloride 96 mEq/L (98-107) L 03/02/19 08:08 BUN 49 mg/dL (8-23) H 03/02/19 08:08 Creatinine 1.84 mg/dL (0.70-1.30) H 03/02/19 08:08 Est GFR ( Amer) 43 (> 60) L 03/02/19 08:08 Est GFR (Non-Af Amer) 35 (> 60) L 03/02/19 08:08 BUN/Creatinine Ratio 27 (6-26) H 03/02/19 08:08 Glucose 138 mg/dL (70-105) H 03/02/19 08:08 POC Glucose 129 mg/dL (70-99) H 03/02/19 08:26 Calcium 10.7 mg/dL (8.6-10.3) H 03/02/19 08:08 Troponin I 0.05 ng/mL (< 0.04) H* 03/02/19 16:42 Procalcitonin 0.26 ng/mL (0.00-0.15) H 03/02/19 08:08 Diabetes panel 03/02/19 Range/Units 08:08 Sodium 137 (136-145) mEq/L Potassium 3.7 (3.5-5.1) mEq/L Chloride 96 L (98-107) mEq/L Carbon Dioxide 27 (23-29) mEq/L BUN 49 H (8-23) mg/dL Creatinine 1.84 H (0.70-1.30) mg/dL Glucose 138 H (70-105) mg/dL Calcium 10.7 H (8.6-10.3) mg/dL AST 22 (13-39) Units/L ALT 13 (7-52) Units/L Alkaline Phosphatase 85 (34-104) Units/L Albumin 4.3 (3.5-5.7) g/dL Thyroid panel 03/02/19 Range/Units 08:08 TSH 2.216 (0.340-5.600) mcIU/mL Calcium panel 03/02/19 Range/Units 08:08 Calcium 10.7 H (8.6-10.3) mg/dL Albumin 4.3 (3.5-5.7) g/dL Pituitary panel 03/02/19 Range/Units 08:08 Sodium 137 (136-145) mEq/L Potassium 3.7 (3.5-5.1) mEq/L Chloride 96 L (98-107) mEq/L Carbon Dioxide 27 (23-29) mEq/L BUN 49 H (8-23) mg/dL Creatinine 1.84 H (0.70-1.30) mg/dL Glucose 138 H (70-105) mg/dL Calcium 10.7 H (8.6-10.3) mg/dL TSH 2.216 (0.340-5.600) mcIU/mL Adrenal panel 03/02/19 Range/Units 08:08 Sodium 137 (136-145) mEq/L Potassium 3.7 (3.5-5.1) mEq/L Chloride 96 L (98-107) mEq/L Carbon Dioxide 27 (23-29) mEq/L BUN 49 H (8-23) mg/dL Creatinine 1.84 H (0.70-1.30) mg/dL Glucose 138 H (70-105) mg/dL Calcium 10.7 H (8.6-10.3) mg/dL Total Bilirubin 0.9 (0.3-1.0) mg/dL AST 22 (13-39) Units/L ALT 13 (7-52) Units/L Alkaline Phosphatase 85 (34-104) Units/L Albumin 4.3 (3.5-5.7) g/dL All other labs normal.
[2019-03-02] MEDS: *HR* HYDROcodone/Acet 5/325 mg TABLET PO PRN (18:12)
[2019-03-02] MEDS ORDERED: traMADol 50 MG TABLET PO ONE (22:49)
[2019-03-03] MEDS: Ampicillin/Sulbactam 1,500 MG in 0.9 % Sodium Chloride Mini Bag 100 ML IVPB SCH ×2 (01:01→15:47)
[2019-03-03 02:50] LABS: Basophils % 0.1 %; Eosinophils % 0.1 %; Hematocrit 25.5 % (37.5-50.1); Hemoglobin 8.4 g/dL (12.9-16.9); Immature Granulocytes % 0.7 % (0-4); Lymphocytes # 1.1 K/mcL (0.6-4.6); Lymphocytes % 13.3 %; Mean Corpuscular HGB Conc 32.9 g/dL (31.6-35.5); Mean Corpuscular Hemoglobin 32.7 pg (28.0-33.3); Mean Corpuscular Volume 99.2 fL (83.0-100.0); Mean Platelet Volume 11.5 fL (9.4-12.4); Monocytes # 0.9 K/mcL (0.0-1.3); Monocytes % 11.6 %; Platelet Count 153 K/mcL (140-400); Red Blood Count 2.57 M/mcL (4.19-5.50); Red Cell Distribution Width 14.8 % (11.5-14.5); Segmented Neutrophils % 74.2 %; White Blood Count 8.1 K/mcL (4.3-11.1)
[2019-03-03 03:12] LABS: Calcium 9.2 mg/dL (8.6-10.3); Potassium 3.3 mEq/L (3.5-5.1)
[2019-03-03] MEDS: Finasteride 5 MG TABLET PO SCH (09:18)
[2019-03-03] MEDS: *HR* HYDROcodone/Acet 5/325 mg TABLET PO PRN ×2 (09:21→15:47)
--- NOTE | 2019-03-03 13:59 | Internal Med Progress Note ---
Hospitalist Progress Note - Encounter Date of Encounter: 03/03/19 Time of Encounter: 13:52 - Subjective Interval History: Mr. Ching is a 83 year old male with history of atrial fibrillation on Xarelto, colon cancer s/p resection and colostomy, MDS, CVA 6 months ago presented to ED for progressive weakness and frequent falls. He has been having multiple falls as well, more frequent in the past week. Did not have any LOC. He has had chronic urinary incontinence requiring finesteride and Flomax but still having voiding issues. He was recently treated by his primary care physician in [place] for UTI with Cipro, but was unable to tolerate PO medication. N/V for about 3 days now. No fevers/chills, SOB. In the ED, a CT head was negative. He was tachycardic and improved with IV fluid hydration. His initial Troponin borderline elevated at 0.04. WBC elevated at 11.9, afebrile. Urinalysis was completely unremarkable. He had a Cortes catheter placed and 1.2 L of urine was obtained. Orthostatic vital signs were positive. Garcia CT showed possible aspiration pneumonia, urinary retention, remainder of findings were chronic. He was admitted in the hospital and started him on empirical IV antibiotic. Pt is more alert, awake and O x 4. He still looks very weak and lethargic. - Exam Vitals: Temp Pulse Resp BP Pulse Ox 98.5 F 73 16 136/64 96 03/03/19 10:49 03/03/19 10:49 03/03/19 10:49 03/03/19 10:49 03/03/19 10:49 Exam: Gen: Alert, awake, Oriented to time,place and person.. Looks weak and lethargic Chest: Diminished breath sounds B/L, No wheezing, No crackles, No rales Heart: S1S2+ RRR No murmurs Abd: Soft, NT, BS +, No organomegaly Ext: No edema, pulses are palpable, No calf tenderness Neuro : No acute focal neuro deficits noticed Skin: No rash. - Assessment and Plan (1) Aspiration pneumonia Current Visit: Yes Status: Acute Assessment and Plan: Reviewed CT of chest- concerning for Aspiration PNA cont empirical abx Unasyn for now will order speech eval Duoneb PRN Patient does need to stay in the hospital more than 2 midnights due to his complex medical problems. So we will change him to full admission today. I did review my colleague Dr. Celeste's H & P including HPI, PMH, PSH, FH, SH, and ROS no changes noticed (2) Acute on chronic kidney failure Current Visit: Yes Status: Acute Assessment and Plan: due to dehydration improving Cr seems to be at baseline today (3) Generalized weakness Current Visit: Yes Status: Acute Assessment and Plan: Likely multifactorial. Primarily from deconditioning from CVA 6 months ago and recent dehydration and a possible aspiration pneumonia PT / OT eval may need ECF placement SW / CM consulted (4) Debility Current Visit: Yes Status: Acute Assessment and Plan: As above (5) Colon cancer Current Visit: No Status: Chronic Assessment and Plan: stable.. 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 Assessment and Plan: cont home meds (7) MDS (myelodysplastic syndrome) Current Visit: No Status: Acute Assessment and Plan: Stable Hb and platelets f/u with Heme Onc as an out pt (8) History of CVA (cerebrovascular accident) Current Visit: Yes Status: Acute Assessment and Plan: cont home medications (9) Urinary retention due to benign prostatic hyperplasia Current Visit: Yes Status: Acute Assessment and Plan: Cortes placed and 1.2 L urine output cont Cortes for now Urology on board appreciate recommendations (10) Dehydration Current Visit: Yes Status: Acute (11) Elevated troponin Current Visit: Yes Status: Acute Assessment and Plan: slightly elevated @ 0.05.. flat and adyynamic due to demand ischemia no further work up needed (12) Frequent falls Current Visit: Yes Status: Acute (13) Atrial fibrillation Current Visit: Yes Status: Acute Assessment and Plan: HR well controlled with current regimen resumed Xarelto for anti coag (14) DVT prophylaxis Current Visit: Yes Status: Acute Assessment and Plan: On Xarelto - Time Spent with Patient Total time spent is greater than 50% in coordination of care (as documented) at patient's floor/unit and/or counseling patient: Internal Medicine: Result - Labs CBC & Chem 7: 03/03/19 02:12 03/03/19 02:12 Labs: Short CBC 03/03/19 Range/Units 02:12 WBC 8.1 (4.3-11.1) K/mcL Hgb 8.4 L D (12.9-16.9) g/dL Hct 25.5 L (37.5-50.1) % Plt Count 153 (140-400) K/mcL Neutrophils # 6.0 (1.6-8.9) K/mcL BMP 03/03/19 02:12 Sodium 137 Potassium 3.3 L Chloride 104 Carbon Dioxide 26 BUN 36 H Creatinine 1.38 H Glucose 104 Calcium 9.2 Cardiac Enzymes 03/02/19 Range/Units 16:42 Troponin I 0.05 H* (< 0.04) ng/mL - ABG Interpretation ABG results: PT/INR, D-dimer PT 14.7 Seconds (9.4-12.1) H 03/02/19 08:08 - Impressions Impressions Cervical Spine CT 03/02/19 08:00 IMPRESSION: 1. No acute fracture or subluxation of the cervical spine. 2. Stable chronic wedging of the T1, T2, and T3 vertebral bodies. 3. Stable multilevel cervical degenerative disc disease, as detailed above. D/ / 03/02/2019 11:11:49 Howard Johnson MD / Renetta Augustin Interpreting Provider: Howard Johnson MD Chest/Abdomen/Pelvis CTA 03/02/19 08:17 size from the prior study. The prostate gland creates an impression on the undersurface of the urinary bladder. Peritoneum/Retroperitoneum: Atheromatous calcifications of the abdominal aorta and its branches. No evidence of intraperitoneal free air. Trace free fluid along the right pericolic gutter, slightly increased in volume from the prior study. No lymphadenopathy. Bones/Soft Tissues: Please refer to the CT thoracic and lumbar spine performed at the same time for dedicated spine findings. Several compression fractures are again seen in the thoracic and lumbar spine including T3, T11, T12, and L2. IMPRESSION: No acute traumatic abnormality in the chest, abdomen, or pelvis. Multiple compression deformities in the thoracic and lumbar spine, better delineated on the dedicated CT thoracic and lumbar spine, not significantly changed from the CT 2 days ago. Multiple subacute to chronic left anterior and posterior rib fractures. The urinary bladder has increased in size and is significantly distended. Additionally, there is mild dilation of the bilateral renal collecting systems and ureters, concerning for bladder outlet obstruction. Decreased distention of the small bowel as compared to the prior study which could represent an improving obstruction or ileus. New patchy opacities in the left lower lobe. There is fluid throughout the esophagus with secretions in the trachea. This could represent aspiration and/or infection. Follow-up radiographs are recommended. Multiple hypodensities in the liver, some appear to represent cysts while others are too small to characterize/indeterminate. D/ / 03/02/2019 11:22:34 Donald Sue / curt Interpreting Provider: Donald Sue Consult Discharge Plan - Plan Referrals: Terry Gupta DO [Primary Care Provider] - 03/07/19 11:30 am (1) Aspiration pneumonia Qualifiers: Aspiration pneumonia type: unspecified Laterality: unspecified laterality Lung location: lower lobe of lung Qualified Code(s): J69.0 - Pneumonitis due to inhalation of food and vomit (2) Acute on chronic kidney failure Qualifiers: Acute renal failure type: unspecified Chronic kidney disease stage: stage 3 (moderate) Qualified Code(s): N17.9 - Acute kidney failure, unspecified; N18.3 - Chronic kidney disease, stage 3 (moderate) (5) Colon cancer Qualifiers: Colon location: transverse Qualified Code(s): C18.4 - Malignant neoplasm of transverse colon (13) Atrial fibrillation Qualifiers: Atrial fibrillation type: chronic Qualified Code(s): I48.2 - Chronic atrial fibrillation
[2019-03-03] MEDS ORDERED: Ipratropium/Albuterol Neb 3 ML IH PRN (14:15)
[2019-03-03] MEDS: *HR* Rivaroxaban 15 MG TABLET PO SCH (15:47)
[2019-03-03] MEDS: Gabapentin 300 MG CAPSULE PO SCH (20:34)
[2019-03-04] MEDS: Ampicillin/Sulbactam 1,500 MG in 0.9 % Sodium Chloride Mini Bag 100 ML IVPB SCH ×2 (01:33→13:15)
[2019-03-04] MEDS: *HR* HYDROcodone/Acet 5/325 mg TABLET PO PRN ×4 (01:33→23:15)
[2019-03-04 05:38] LABS: Hematocrit 25.6 % (37.5-50.1); Hemoglobin 8.5 g/dL (12.9-16.9); Mean Corpuscular HGB Conc 33.2 g/dL (31.6-35.5); Mean Corpuscular Hemoglobin 32.2 pg (28.0-33.3); Mean Platelet Volume 10.9 fL (9.4-12.4); Platelet Count 154 K/mcL (140-400); Red Blood Count 2.64 M/mcL (4.19-5.50); Red Cell Distribution Width 14.1 % (11.5-14.5); White Blood Count 6.2 K/mcL (4.3-11.1)
[2019-03-04 05:59] LABS: BUN/Creatinine Ratio 22 (6-26); Blood Urea Nitrogen 27 mg/dL (8-23); Calcium 9.2 mg/dL (8.6-10.3); Carbon Dioxide 27 mEq/L (23-29); Chloride 101 mEq/L (98-107); Glucose 108 mg/dL (70-105); Magnesium 1.8 mg/dL (1.6-2.6); Osmolality,Calculated 288 (280-300); Potassium 3.1 mEq/L (3.5-5.1); Sodium 136 mEq/L (136-145); eGFR For African Americans > 60 (> 60); eGFR For Non-African Americans 57 (> 60)
[2019-03-04] MEDS: Finasteride 5 MG TABLET PO SCH (10:02)
--- NOTE | 2019-03-04 10:40 | Internal Med Progress Note ---
Hospitalist Progress Note - Encounter Date of Encounter: 03/04/19 Time of Encounter: 10:40 - Subjective Interval History: Was seen and examined at bedside-patient has multiple complaints -with body aches discussed treatment plan with the patient which includes continuation of IV antibiotics evaluation patient verbalizes understanding - Exam Vitals: Temp Pulse Resp BP Pulse Ox 97.9 F 65 15 151/83 97 03/04/19 06:37 03/04/19 06:37 03/04/19 06:37 03/04/19 06:37 03/04/19 06:37 Exam: Gen: Alert, awake, Oriented to time,place and person.. Looks weak and lethargic Chest: Diminished breath sounds B/L, No wheezing, No crackles, No rales Heart: S1S2+ RRR No murmurs Abd: Soft, NT, BS +, No organomegaly Ext: No edema, pulses are palpable, No calf tenderness Neuro : No acute focal neuro deficits noticed Skin: No rash. - Assessment and Plan (1) Colon cancer Current Visit: No Status: Chronic Assessment and Plan: stable.. 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 Primarily from deconditioning from CVA 6 months ago and recent dehydration and a possible aspiration pneumonia PT / OT eval Recommending home health SW / CM consulted (5) Debility Current Visit: Yes Status: Acute Assessment and Plan: As above (6) History of CVA (cerebrovascular accident) Current Visit: Yes Status: Acute Assessment and Plan: cont home medications (7) Acute on chronic kidney failure Current Visit: Yes Status: Acute Assessment and Plan: due to dehydration improving Cr seems to be at baseline today (8) Urinary retention due to benign prostatic hyperplasia Current Visit: Yes Status: Acute Assessment and Plan: Cortes placed and 1.2 L urine output cont Cortes for now Urology on board appreciate recommendations (9) Aspiration pneumonia Current Visit: Yes Status: Acute Assessment and Plan: Reviewed CT of chest- concerning for Aspiration PNA-patient states that prior to admission he had an episode of excessive vomiting overnight cont empirical abx Unasyn for now speech eval-no signs of aspiration during eating continue with thin liquids Duoneb PRN (10) Dehydration Current Visit: Yes Status: Acute Assessment and Plan: Patient appears to be improving encouraged patient to continue with oral hydration (11) Elevated troponin Current Visit: Yes Status: Acute Assessment and Plan: slightly elevated @ 0.05.. flat and adyynamic due to demand ischemia no further work up needed (12) Frequent falls Current Visit: Yes Status: Acute Assessment and Plan: Patient has had episodes of falls PT and OT evaluated home health recommended Fall precautions (13) Atrial fibrillation Current Visit: Yes Status: Acute Assessment and Plan: HR well controlled with current regimen resumed Xarelto for anti coag (14) DVT prophylaxis Current Visit: Yes Status: Acute Assessment and Plan: On Xarelto - Time Spent with Patient Total time spent is greater than 50% in coordination of care (as documented) at patient's floor/unit and/or counseling patient: Internal Medicine: Result - Labs CBC & Chem 7: 03/04/19 05:10 03/04/19 05:10 Labs: Short CBC 03/04/19 Range/Units 05:10 WBC 6.2 (4.3-11.1) K/mcL Hgb 8.5 L (12.9-16.9) g/dL Hct 25.6 L (37.5-50.1) % Plt Count 154 (140-400) K/mcL BMP 03/03/19 03/04/19 02:12 05:10 Sodium 137 136 Potassium 3.3 L 3.1 L Chloride 104 101 Carbon Dioxide 26 27 BUN 36 H 27 H Creatinine 1.38 H 1.21 Glucose 104 108 H Calcium 9.2 9.2 - ABG Interpretation ABG results: PT/INR, D-dimer PT 14.7 Seconds (9.4-12.1) H 03/02/19 08:08 - Impressions Impressions Cervical Spine CT 03/02/19 08:00 IMPRESSION: 1. No acute fracture or subluxation of the cervical spine. 2. Stable chronic wedging of the T1, T2, and T3 vertebral bodies. 3. Stable multilevel cervical degenerative disc disease, as detailed above. D/ / 03/02/2019 11:11:49 Howard Johnson MD / Renetta Augustin Interpreting Provider: Howard Johnson MD Wrist X-Ray 03/02/19 08:16 IMPRESSION: No acute osseous abnormality. D/ / 03/02/2019 08:53:58 [facility] MD / [facility] Interpreting Provider: Jonathan Bianchi MD Consult Discharge Plan - Plan Referrals: Terry Gupta DO [Primary Care Provider] - 03/07/19 11:30 am (1) Colon cancer Qualifiers: Colon location: transverse Qualified Code(s): C18.4 - Malignant neoplasm of transverse colon (7) Acute on chronic kidney failure Qualifiers: Acute renal failure type: unspecified Chronic kidney disease stage: stage 3 (moderate) Qualified Code(s): N17.9 - Acute kidney failure, unspecified; N18.3 - Chronic kidney disease, stage 3 (moderate) (9) Aspiration pneumonia Qualifiers: Aspiration pneumonia type: unspecified Laterality: unspecified laterality Lung location: lower lobe of lung Qualified Code(s): J69.0 - Pneumonitis due to inhalation of food and vomit (13) Atrial fibrillation Qualifiers: Atrial fibrillation type: chronic Qualified Code(s): I48.2 - Chronic atrial fibrillation
[2019-03-04] MEDS ORDERED: Potassium Chloride 20 MEQ, Lidocaine 1% 2 ML in D5% in Water 250 ML IVPB ONE (13:35)
[2019-03-04] MEDS: *HR* Rivaroxaban 15 MG TABLET PO SCH (16:17)
[2019-03-04] MEDS: Gabapentin 300 MG CAPSULE PO SCH (19:47)
[2019-03-05] MEDS: Ampicillin/Sulbactam 1,500 MG in 0.9 % Sodium Chloride Mini Bag 100 ML IVPB SCH ×2 (00:24→11:47)
[2019-03-05] MEDS ORDERED: *HR* OxyCODONE Immed Rel 5 MG TABLET PO ONE (03:17)
[2019-03-05 04:51] LABS: Basophils % 0.4 %; Eosinophils # 0.2 K/mcL (0.0-0.6); Eosinophils % 3.8 %; Hematocrit 26.5 % (37.5-50.1); Hemoglobin 8.9 g/dL (12.9-16.9); Immature Granulocytes % 1.5 % (0-4); Lymphocytes % 18.8 %; Mean Corpuscular HGB Conc 33.6 g/dL (31.6-35.5); Mean Corpuscular Hemoglobin 32.5 pg (28.0-33.3); Mean Corpuscular Volume 96.7 fL (83.0-100.0); Mean Platelet Volume 11.2 fL (9.4-12.4); Monocytes # 0.8 K/mcL (0.0-1.3); Monocytes % 13.8 %; Neutrophils # 3.4 K/mcL (1.6-8.9); Platelet Count 152 K/mcL (140-400); Red Blood Count 2.74 M/mcL (4.19-5.50); Red Cell Distribution Width 13.8 % (11.5-14.5); Segmented Neutrophils % 61.7 %; White Blood Count 5.5 K/mcL (4.3-11.1)
[2019-03-05 05:06] LABS: BUN/Creatinine Ratio 20 (6-26); Blood Urea Nitrogen 22 mg/dL (8-23); Carbon Dioxide 26 mEq/L (23-29); Chloride 101 mEq/L (98-107); Glucose 106 mg/dL (70-105); Osmolality,Calculated 282 (280-300); Potassium 3.1 mEq/L (3.5-5.1); Sodium 134 mEq/L (136-145); eGFR For African Americans > 60 (> 60); eGFR For Non-African Americans > 60 (> 60)
[2019-03-05] MEDS: Finasteride 5 MG TABLET PO SCH (09:30)
[2019-03-05] MEDS: *HR* HYDROcodone/Acet 5/325 mg TABLET PO PRN ×3 (11:47→23:05)
--- NOTE | 2019-03-05 15:48 | Internal Med Progress Note ---
Hospitalist Progress Note - Encounter Date of Encounter: 03/05/19 Time of Encounter: 15:45 - Subjective Interval History: Seen and examined at bedside. Patient is new to me, information obtained from chart review and patient report. Overall says he feels better. Denied shortness of breath. Has no cough. - Exam Vitals: Temp Pulse Resp BP Pulse Ox 98.7 F 63 16 123/66 94 03/05/19 15:31 03/05/19 15:31 03/05/19 15:31 03/05/19 15:31 03/05/19 15:31 Exam: Gen: Alert, awake, Oriented to time,place and person.. Looks weak and lethargic Chest: Diminished breath sounds B/L, No wheezing, No crackles, No rales Heart: S1S2+ RRR No murmurs Abd: Soft, NT, BS +, No organomegaly. LLQ ostomy Ext: No edema, pulses are palpable, No calf tenderness Neuro : No acute focal neuro deficits noticed Skin: No rash. - Assessment and Plan (1) Aspiration pneumonia Current Visit: Yes Status: Acute Assessment and Plan: CT chest- concerning for Aspiration PN (patient reported an episode of excessive vomiting prior to hospitalization). Urinary antigens negative. Evaluated by ST and no evidence of aspiration. Received 4 doses IV Unasyn. Will de-escalate to azithromycin, ceftriaxone. (2) Urinary retention due to benign prostatic hyperplasia Current Visit: Yes Status: Acute Assessment and Plan: hernández catheter placed this hospitalization for urinary retention. Over 1 L drained from bladder. No prior history of urinary retention per patient. Remove Hernández and check true postvoid residual. If he continues to retain will need to replace Hernández and consult urology (3) Colon cancer Current Visit: No Status: Chronic Assessment and Plan: stable. Has ostomy. 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 F/u with Heme Onc as an out pt (6) Generalized weakness Current Visit: Yes Status: Acute Assessment and Plan: Likely multifactorial. Primarily from deconditioning from CVA 6 months ago and recent dehydration and a possible aspiration pneumonia. PT/OT following. Plan for discharge to [facility] on 03/06 (7) History of CVA (cerebrovascular accident) Current Visit: Yes Status: Acute Assessment and Plan: per hx. Cont home xarelto (8) Acute on chronic kidney failure Current Visit: Yes Status: Acute Assessment and Plan: due to dehydration improving Cr seems to be at baseline today (9) Dehydration Current Visit: Yes Status: Acute Assessment and Plan: Patient appears to be improving encouraged patient to continue with oral hydration (10) Elevated troponin Current Visit: Yes Status: Acute Assessment and Plan: slightly elevated @ 0.05.. flat and adyynamic due to demand ischemia no further work up needed (11) Frequent falls Current Visit: Yes Status: Acute Assessment and Plan: Patient has had episodes of falls PT and OT evaluated home health recommended Fall precautions (12) Atrial fibrillation Current Visit: Yes Status: Acute Assessment and Plan: HR well controlled with current regimen resumed Xarelto for anti coag (13) DVT prophylaxis Current Visit: Yes Status: Acute Assessment and Plan: On Xarelto - Time Spent with Patient Total time spent is greater than 50% in coordination of care (as documented) at patient's floor/unit and/or counseling patient: Internal Medicine: Result - Labs CBC & Chem 7: 03/05/19 04:06 03/05/19 04:06 Labs: Short CBC 03/05/19 Range/Units 04:06 WBC 5.5 (4.3-11.1) K/mcL Hgb 8.9 L (12.9-16.9) g/dL Hct 26.5 L (37.5-50.1) % Plt Count 152 (140-400) K/mcL Neutrophils # 3.4 (1.6-8.9) K/mcL BMP 03/05/19 04:06 Sodium 134 L Potassium 3.1 L Chloride 101 Carbon Dioxide 26 BUN 22 Creatinine 1.08 Glucose 106 H Calcium 9.0 - ABG Interpretation ABG results: PT/INR, D-dimer PT 14.7 Seconds (9.4-12.1) H 03/02/19 08:08 Consult Discharge Plan - Plan Referrals: Terry Gupta DO [Primary Care Provider] - 03/07/19 11:30 am (1) Aspiration pneumonia Qualifiers: Aspiration pneumonia type: unspecified Laterality: unspecified laterality Lung location: lower lobe of lung Qualified Code(s): J69.0 - Pneumonitis due to inhalation of food and vomit (3) Colon cancer Qualifiers: Colon location: transverse Qualified Code(s): C18.4 - Malignant neoplasm of transverse colon (8) Acute on chronic kidney failure Qualifiers: Acute renal failure type: unspecified Chronic kidney disease stage: stage 3 (moderate) Qualified Code(s): N17.9 - Acute kidney failure, unspecified; N18.3 - Chronic kidney disease, stage 3 (moderate) (12) Atrial fibrillation Qualifiers: Atrial fibrillation type: chronic Qualified Code(s): I48.2 - Chronic atrial fibrillation
[2019-03-05] MEDS: *HR* Rivaroxaban 15 MG TABLET PO SCH (17:41)
[2019-03-05] MEDS ORDERED: traMADol 50 MG TABLET PO ONE (20:42)
[2019-03-05] MEDS: Gabapentin 300 MG CAPSULE PO SCH (21:07)
[2019-03-06] MEDS: Ampicillin/Sulbactam 1,500 MG in 0.9 % Sodium Chloride Mini Bag 100 ML IVPB SCH (01:14)
[2019-03-06] MEDS: *HR* HYDROcodone/Acet 5/325 mg TABLET PO PRN ×2 (06:10→12:31)
[2019-03-06 06:20] LABS: Hematocrit 27.2 % (37.5-50.1); Hemoglobin 9.2 g/dL (12.9-16.9); Mean Corpuscular HGB Conc 33.8 g/dL (31.6-35.5); Mean Corpuscular Hemoglobin 32.6 pg (28.0-33.3); Mean Corpuscular Volume 96.5 fL (83.0-100.0); Mean Platelet Volume 10.8 fL (9.4-12.4); Platelet Count 186 K/mcL (140-400); Red Blood Count 2.82 M/mcL (4.19-5.50); Red Cell Distribution Width 13.8 % (11.5-14.5); White Blood Count 6.1 K/mcL (4.3-11.1)
[2019-03-06 06:44] LABS: Alanine Aminotransferase 15 Units/L (7-52); Albumin 3.4 g/dL (3.5-5.7); Albumin/Globulin Ratio 1.4 (1.1-2.2); Alkaline Phosphatase 72 Units/L (34-104); Aspartate Amino Transferase 17 Units/L (13-39); BUN/Creatinine Ratio 19 (6-26); Bilirubin,Total 0.8 mg/dL (0.3-1.0); Blood Urea Nitrogen 22 mg/dL (8-23); Calcium 9.6 mg/dL (8.6-10.3); Carbon Dioxide 27 mEq/L (23-29); Chloride 100 mEq/L (98-107); Globulin 2.4 g/dL (2.4-3.5); Glucose 112 mg/dL (70-105); Osmolality,Calculated 288 (280-300); Potassium 3.5 mEq/L (3.5-5.1); Sodium 137 mEq/L (136-145); Total Protein 5.8 g/dL (6.4-8.9); eGFR For African Americans > 60 (> 60); eGFR For Non-African Americans 60 (> 60)
[2019-03-06] MEDS: Finasteride 5 MG TABLET PO SCH (07:59)
[2019-03-06 11:10] VITALS: BP 127/88
--- NOTE | 2019-03-06 11:24 | Discharge Summary ---
- NOTES TO OUTPATIENT PROVIDER Notes to Outpatient Provider: f/u with PCP in one week. f/u with Urology Dr. Santoyo in one week. Pelase continue Hernández catheter for now. Medications changes : Changed your Neurontin dose to 300mg TID instead of 600mg HS. Orders not resulted at time of discharge: Pending orders 03/02/19 08:28 Culture,Blood [BC] Stat Date of Encounter: 03/06/19 Time of Encounter: 11:22 - Discharge Diagnosis (1) Generalized weakness Priority: Primary Status: Acute (2) Aspiration pneumonia Priority: Primary Status: Acute Qualifiers: Aspiration pneumonia type: unspecified Laterality: unspecified laterality Lung location: lower lobe of lung Qualified Code(s): J69.0 - Pneumonitis due to inhalation of food and vomit (3) Acute on chronic kidney failure Priority: Primary Status: Acute Qualifiers: Acute renal failure type: unspecified Chronic kidney disease stage: stage 3 (moderate) Qualified Code(s): N17.9 - Acute kidney failure, unspecified; N18.3 - Chronic kidney disease, stage 3 (moderate) (4) Colon cancer Priority: Secondary Status: Chronic Qualifiers: Colon location: transverse Qualified Code(s): C18.4 - Malignant neoplasm of transverse colon (5) Chemotherapy-induced peripheral neuropathy Priority: Secondary Status: Chronic (6) MDS (myelodysplastic syndrome) Priority: Secondary Status: Acute (7) History of CVA (cerebrovascular accident) Priority: Secondary Status: Acute (8) Urinary retention due to benign prostatic hyperplasia Priority: Secondary Status: Acute (9) Dehydration Priority: Secondary Status: Acute (10) Elevated troponin Priority: Secondary Status: Acute (11) Frequent falls Priority: Secondary Status: Acute (12) Atrial fibrillation Priority: Secondary Status: Acute Qualifiers: Atrial fibrillation type: chronic Qualified Code(s): I48.2 - Chronic atrial fibrillation (13) DVT prophylaxis Priority: Secondary Status: Acute Hospital course: Mr. Ching is a 83 year old male with history of atrial fibrillation on Xarelto, colon cancer s/p resection and colostomy, MDS, CVA 6 months ago presented to ED for progressive weakness and frequent falls. He has been having multiple falls as well, more frequent in the past week. Did not have any LOC. He has had chronic urinary incontinence requiring finesteride and Flomax but still having voiding issues. He was recently treated by his primary care physician in [place] for UTI with Cipro, but was unable to tolerate PO medication. N/V for about 3 days now. No fevers/chills, SOB. In the ED, a CT head was negative. He was tachycardic and improved with IV fluid hydration. His initial Troponin borderline elevated at 0.04. WBC elevated at 11.9, afebrile. Urinalysis was completely unremarkable. He had a Hernández catheter placed and 1.2 L of urine was obtained. Orthostatic vital signs were positive. Garcia CT showed possible aspiration pneumonia, urinary retention, remainder of findings were chronic. He was admitted in the hospital and started him on empirical IV antibiotic Unasyn and IV hydration. His symptoms started improving slowly. He is breathing comfortably on RA. His Cr also improved with IV fluids. He did have urinary retention, so placed a hernández catheter. He failed voiding trail here. Pt was seen by Urology who recommended to f/u with Urology as an out pt in one week for possible Cystoscope and voiding trail again. He was seen by PT / OT who recommend Swing bed placement for PT / OT. So will d/c him to Swing bed facility today in stable condition today. He still c/o burning sensation in b/l legs due to peripheral neuropathy, so changed his Neurontin to 300mg TID for now. - Time Spent with Patient Total time spent providing and/or coordinating discharge services: - Discharge Medications Prescriptions: New Gabapentin [Neurontin] 300 mg PO TID 10 Days #30 capsule HYDROcodone/Acet 5/325 mg [Prospect 5-325 mg] 1 tab PO Q8HR PRN 5 Days #15 tablet PRN Reason: Moderate Pain Continued Rivaroxaban [Xarelto] 15 mg PO DAILY Furosemide [Lasix] 40 mg PO DAILY Finasteride [Proscar] 5 mg PO DAILY DULoxetine [Cymbalta] 60 mg PO DAILY Tamsulosin [Flomax] 0.4 mg PO DAILY Levothyroxine Sodium 88 mcg PO QAM Discontinued Gabapentin [Neurontin] 600 mg PO HS Hydrocodone/Acetaminophen [Hydrocodon-Acetaminophen 5-325] 1 tab PO Q12H PRN PRN Reason: Pain Ciprofloxacin [Cipro] 500 mg PO BID Home Medications: Rivaroxaban [Xarelto] 15 mg PO DAILY 10/05/18 [History] Furosemide [Lasix] 40 mg PO DAILY 11/21/18 [History] DULoxetine [Cymbalta] 60 mg PO DAILY 03/02/19 [History] Finasteride [Proscar] 5 mg PO DAILY 03/02/19 [History] Levothyroxine Sodium 88 mcg PO QAM 03/02/19 [History] Tamsulosin [Flomax] 0.4 mg PO DAILY 03/02/19 [History] Amoxicillin/Clavulanate [Augmentin] 500 mg PO BIDWM #6 tablet 03/06/19 [Rx] Gabapentin [Neurontin] 300 mg PO TID 10 Days #30 capsule 03/06/19 [Rx] HYDROcodone/Acet 5/325 mg [Prospect 5-325 mg] 1 tab PO Q8HR PRN 5 Days #15 tablet 03/06/19 [Rx] Allergies/Adverse Reactions: Allergy/AdvReac Type Severity Reaction Status Date / Time No Known Allergies Allergy Verified 12/19/18 12:04 Date of admission: 03/03/19 09:49 Primary care physician: Terry Gupta DO Consults: 03/02/19 11:24 Consult to Occupational Therapy [CONS] Routine Comment: Evaluate, develop and implement POC Reason for Consult: freq falls weakness Does patient have active BEDREST order?: No Is patient medically & hemodynamically stable?: Yes Consult to Physical Therapy [CONS] Routine Comment: Evaluate, develop and implement POC Reason for Consult: freq falls, weakness Does patient have active BEDREST order?: No Is patient medically & hemodynamically stable?: Yes 03/02/19 11:25 Consult to Urology [CONS] Routine Consulting Provider: Urology Hermelinda Reason for Consult: bladder obst Call Completed: Yes 03/03/19 08:24 Consult to Sales Operations Associate [CONS] Routine Reason for SW Consult: PT/OT RECOMMEND INPATIENT SWING BED - Constitutional Vitals: Temp Pulse Resp BP Pulse Ox 98.5 F 68 15 127/88 98 03/06/19 11:09 03/06/19 11:09 03/06/19 11:09 03/06/19 11:09 03/06/19 11:09 General appearance: Present: A&O X 3, no acute distress Exam: Gen: Alert, awake, Oriented to time,place and person.. Looks weak and lethargic Chest: Diminished breath sounds B/L, No wheezing, No crackles, No rales Heart: S1S2+ RRR No murmurs Abd: Soft, NT, BS +, No organomegaly.. Colostomy bag + Ext: No edema, pulses are palpable, No calf tenderness Neuro : No acute focal neuro deficits noticed Skin: No rash. - Patient Status Disposition: Transfer SNF Condition: Good Overall status at discharge: patient is back to baseline - Discharge Instructions Follow Up With: Terry Gupta DO [Primary Care Provider] - 03/07/19 11:30 am Daniel Santoyo [Partnered Physician] - - Diet and Activity Activity: as per physical therapy, increase activity as tolerated Diet: low salt diet
--- NOTE | 2019-03-06 11:31 | Physician Discharge Referral ---
[facility] Transfer To: ECF Provider in Charge after Transfer: PCP Institutional Level of Care: Skilled - Diagnosis (1) Generalized weakness Status: Acute (2) Aspiration pneumonia Status: Acute (3) Acute on chronic kidney failure Status: Acute (4) Colon cancer Status: Chronic (5) Chemotherapy-induced peripheral neuropathy Status: Chronic (6) MDS (myelodysplastic syndrome) Status: Acute (7) History of CVA (cerebrovascular accident) Status: Acute (8) Urinary retention due to benign prostatic hyperplasia Status: Acute (9) Dehydration Status: Acute (10) Elevated troponin Status: Acute (11) Frequent falls Status: Acute (12) Atrial fibrillation Status: Acute (13) DVT prophylaxis Status: Acute - Transfer Medications Prescriptions: Amoxicillin/Clavulanate [Augmentin] 500 mg PO BIDWM #6 tablet Gabapentin [Neurontin] 300 mg PO TID 10 Days #30 capsule HYDROcodone/Acet 5/325 mg [[place] 5-325 mg] 1 tab PO Q8HR PRN 5 Days #15 tablet PRN Reason: Moderate Pain Home Medications: Rivaroxaban [Xarelto] 15 mg PO DAILY 10/05/18 [History] Furosemide [Lasix] 40 mg PO DAILY 11/21/18 [History] DULoxetine [Cymbalta] 60 mg PO DAILY 03/02/19 [History] Finasteride [Proscar] 5 mg PO DAILY 03/02/19 [History] Levothyroxine Sodium 88 mcg PO QAM 03/02/19 [History] Tamsulosin [Flomax] 0.4 mg PO DAILY 03/02/19 [History] Amoxicillin/Clavulanate [Augmentin] 500 mg PO BIDWM #6 tablet 03/06/19 [Rx] Gabapentin [Neurontin] 300 mg PO TID 10 Days #30 capsule 03/06/19 [Rx] HYDROcodone/Acet 5/325 mg [[place] 5-325 mg] 1 tab PO Q8HR PRN 5 Days #15 tablet 03/06/19 [Rx] Allergies/Adverse Reactions: Allergy/AdvReac Type Severity Reaction Status Date / Time No Known Allergies Allergy Verified 12/19/18 12:04 - Respiratory Orders Smoking Cessation: Smoking cessation has been advised. For more information, call the [place] Tobacco Quit Line at 7-331-MWWW-NOW. CERTIFICATION: I certify that the transfer of the above named patient to an Extended Care Facility is necessary for the continuing treatment of the diagnosis listed. The above information is true and accurate reflection of patient's current condition. Confidential - Redisclosure prohibited without a patient's written consent.
[2019-03-06] MEDS ORDERED: Ampicillin/Sulbactam 1,500 MG in 0.9 % Sodium Chloride Mini Bag 100 ML IVPB SCH (14:00)
--- NOTE | 2019-03-06 16:23 | Electrocardiograph Report ---
[address] [address] Test Date: 2019-03-02 Pat Name: Ravi Ching Department: [id number] Room: 3B35 Gender: M Media Job Titles: : 1935 Requested By: Yan Starr Order Number: [id number] Reading MD: Wagner Garcia Measurements Intervals [place] Rate: 120 P: [place]: QRS: 54 QRSD: 106 T: 72 QT: 331 QTc: 468 Interpretive Statements Atrial fibrillation with rapid ventricular response RSR' in V1 or V2, right VCD or RVH Nonspecific ST-T abnormalities Electronically Signed On 03-06-2019 16:21:58 EDT by Wagner Garcia
== END 2019-03-06 13:32 | DRG 682 ==
LOC: EMEROOARM 07:44 → 3BNU 07:44 → SUATTDRO 11:21 → 3BNU 11:57
PROVIDERS: ADMIT Student in an Organized Health Care Education/Training Program; ATTEND Family Medicine

== ENCOUNTER 2021-11-19 09:45 | Observation (INO) ==
[2021-11-19] MEDS ORDERED: Isovue-370 500 ML BOTTLE IVP ONE (11:13)
[2021-11-19 11:53] LABS: Basophils % 0.3 %; Eosinophils # 0.1 K/mcL (0.0-0.6); Eosinophils % 1.9 %; Hematocrit 27.4 % (37.5-50.1); Hemoglobin 9.1 g/dL (12.9-16.9); Immature Granulocytes % 0.6 % (0-4); Lymphocytes # 0.9 K/mcL (0.6-4.6); Lymphocytes % 14.9 %; Mean Corpuscular HGB Conc 33.2 g/dL (31.6-35.5); Mean Corpuscular Hemoglobin 33.3 pg (28.0-33.3); Mean Corpuscular Volume 100.4 fL (83.0-100.0); Mean Platelet Volume 11.3 fL (9.4-12.4); Monocytes # 0.6 K/mcL (0.0-1.3); Monocytes % 9.9 %; Neutrophils # 4.6 K/mcL (1.6-8.9); Platelet Count 139 K/mcL (140-400); Red Blood Count 2.73 M/mcL (4.19-5.50); Red Cell Distribution Width 13.2 % (11.5-14.5); Segmented Neutrophils % 72.4 %; White Blood Count 6.3 K/mcL (4.3-11.1)
[2021-11-19] MEDS ORDERED: Morphine Sulfate 2 MG/ML SYRINGE IVP ONE (12:02)
[2021-11-19 12:15] LABS: Albumin/Globulin Ratio 1.3 (1.1-2.2); Bilirubin,Direct 0.1 mg/dL (0.0-0.2); Bilirubin,Indirect 0.6 mg/dL (0.0-1.0); Bilirubin,Total 0.7 mg/dL (0.3-1.0); Calcium 9.7 mg/dL (8.6-10.3); Globulin 3.1 g/dL (2.4-3.5); Potassium 4.6 mEq/L (3.5-5.1); Total Protein 7.1 g/dL (6.4-8.9)
[2021-11-19 12:22] LABS: Troponin I 0.03 ng/mL (< 0.04)
[2021-11-19] MEDS ORDERED: Lidocaine -MPF 1% 2 ML VIAL INFILT STA (12:29)
[2021-11-19 12:56] LABS: INR 1.1; Prothrombin Time 12.7 Seconds (9.4-12.1)
[2021-11-19 12:58] LABS: Activated Partial Thrombo Time 26.2 Seconds (26.0-36.0)
[2021-11-19 13:05] LABS: Bacteria,Urine Few per hpf (None-Few); Bilirubin,Urine Negative (Negative); Blood,Urine Trace (Negative); Clarity,Urine Clear (Clear); Color,Urine Light-Yellow (Yellow); Glucose,Urine (UA) Normal (Normal); Ketones,Urine Negative (Negative); Leukocyte Esterase,Urine Negative (Negative); Nitrite,Urine Negative (Negative); PH,Urine 5.5 pH Units (5.0-8.0); Protein,Urine 30 mg/dL (Neg-Trace); RBC,Urine 0-3 per hpf (0-3); Specific Gravity,Urine 1.019 (1.010-1.025); Squamous Epithelial Cell,Urine Few per hpf (None-Few); Urobilinogen,Urine Normal (Normal); WBC,Urine 0-3 per hpf (0-3)
[2021-11-19] MEDS ORDERED: *HR* HYDROmorphone (PF) 1 MG/ML SYRINGE IVP ONE ×2 (13:47→14:44)
[2021-11-19] MEDS: cefTRIAXone 2,000 MG in 0.9 % Sodium Chloride 20 ML IVP SCH (14:44)
[2021-11-19] MEDS: Azithromycin 250 MG TABLET PO SCH (14:44)
[2021-11-19] MEDS ORDERED: *HR* HYDROcodone/Acet 5/325 mg TABLET PO PRN (15:07)
[2021-11-19] MEDS ORDERED: Ondansetron 4 MG/2 ML VIAL IVP PRN (15:07)
[2021-11-19] MEDS ORDERED: Naloxone 0.4 MG/ML INJ IVP PRN (15:07)
[2021-11-19] MEDS ORDERED: Ipratropium/Albuterol Neb 3 ML IH PRN (15:10)
[2021-11-19] MEDS ORDERED: Benzonatate 100 MG CAPSULE PO PRN (15:10)
[2021-11-19] MEDS ORDERED: Melatonin 3 MG TABLET PO PRN (15:12)
[2021-11-19] MEDS: *HR* Heparin 5,000 UNIT/ML VIAL SQ SCH (17:34)
[2021-11-19] MEDS: *HR* OxyCODONE Immed Rel 5 MG TABLET PO PRN (20:19)
[2021-11-19] MEDS: Acetaminophen 325 MG TABLET PO PRN (22:02)
[2021-11-20] MEDS: *HR* OxyCODONE Immed Rel 5 MG TABLET PO PRN (06:57)
[2021-11-20] MEDS: *HR* Heparin 5,000 UNIT/ML VIAL SQ SCH (06:57)
[2021-11-20 08:02] VITALS: BP 156/79; PULSE 73; TEMP 98.3; O2SAT 93
[2021-11-20] MEDS: Acetaminophen 325 MG TABLET PO PRN (08:09)
[2021-11-20] MEDS: Azithromycin 250 MG TABLET PO SCH (08:09)
[2021-11-20] MEDS: cefTRIAXone 2,000 MG in 0.9 % Sodium Chloride 20 ML IVP SCH (08:10)
== END 2021-11-20 10:43 | disposition home or self-care (01) ==
LOC: EMEROOARM 09:45 → 3ANU 09:45 → SUATTDRO 15:10 → 3ANU 16:10
PROVIDERS: ADMIT Internal Medicine; ATTEND Internal Medicine